=== PATIENT | male | born 1940 | race Caucasian/White ===

== ENCOUNTER → 2023-03-13 | Outpatient (REF) | payer MEDICARE, OTHER | LOC: M SFHCDERM 18:05 | PROVIDERS: ATTEND Dermatology | DX: C44.49 Other specified malignant neoplasm of skin of scalp and neck (principal) ==

== ENCOUNTER → 2023-03-20 | Outpatient (REF) | payer MEDICARE, OTHER | LOC: M SFHCDERM 17:38 | PROVIDERS: ATTEND Dermatology | DX: C44.42 Squamous cell carcinoma of skin of scalp and neck (principal) ==